=== PATIENT | female | born 2000 | race Caucasian/White ===

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

== ENCOUNTER 2022-06-11 16:03 | Emergency (ER) | payer OTHER ==
[~2022-06-11] VITALS: Ht 165.1 cm; Wt 143.0 kg
[2022-06-11] MEDS ORDERED: ACETAMINOPHEN 325MG TABLET PO ONE (18:15)
[2022-06-11 20:45] VITALS: BP 123/70
== END 2022-06-11 20:45 | disposition home or self-care (01) ==
LOC: ER 16:03
DX: H66.92 Otitis media, unspecified, left ear (principal); R00.0 Tachycardia, unspecified; Z20.822 Contact with and (suspected) exposure to COVID-19
CPT/HCPCS: 71046; 81025; 87426; 87804; 93005; 99285; C9803

== ENCOUNTER 2022-11-13 18:26 | Emergency (ER) | payer OTHER ==
[~2022-11-13] VITALS: Ht 170.2 cm; Wt 152.5 kg
[2022-11-13 20:24] LABS: CLARITY URINE CLEAR (CLEAR); COLOR URINE YELLOW (YELLOW); KETONES URINE NEGATIVE (NEGATIVE); LEUKOCYTE ESTERASE URINE NEGATIVE (NEGATIVE); NITRITE URINE NEGATIVE (NEGATIVE); OCCULT BLOOD URINE 3+ (NEGATIVE); PH URINE 5.5 (4.5-8.0); PROTEIN URINE TRACE (NEGATIVE); SPECIFIC GRAVITY URINE 1.029 (1.005-1.030); UROBILINOGEN URINE 0.2 E.U./dL (0.2-1.0)
[2022-11-13] MEDS ORDERED: ACETAMINOPHEN 325MG TABLET PO ONE (21:15)
[2022-11-13] MEDS ORDERED: GUAIFENESIN 600MG ER TABLET PO ONE (21:15)
[2022-11-13 23:00] VITALS: BP 139/86
[2022-11-13] MEDS ORDERED: ACET-2708 MT (23:03)
[2022-11-13] MEDS ORDERED: GUAI600T26 MT (23:03)
== END 2022-11-13 23:22 | disposition home or self-care (01) ==
LOC: ER 18:26
DX: B34.9 Viral infection, unspecified (principal); R07.89 Other chest pain; R05.9 Cough, unspecified; J45.909 Unspecified asthma, uncomplicated
CPT/HCPCS: 36415; 71045; 81003; 81025; 85379; 87426; 99284

== ENCOUNTER 2024-06-17 22:14 | Emergency (ER) | payer MEDICAID, OTHER ==
[~2024-06-17] VITALS: Ht 167.6 cm; Wt 154.5 kg
[~2024-06-17 22:14] MED LIST changes: +ACET-2708 MT; +GUAI600T26 MT
[2024-06-17 22:30] VITALS: O2SAT 98
[2024-06-17 23:57] VITALS: BP 148/76; PULSE 96; RESP 18; TEMP 36.78072; O2SAT 99
== END 2024-06-18 00:05 | disposition home or self-care (01) ==
LOC: ER 22:14
DX: S61.212A Laceration without foreign body of right middle finger without damage to nail, initial encounter (principal); J45.909 Unspecified asthma, uncomplicated; W45.8XXA Other foreign body or object entering through skin, initial encounter; Y93.89 Activity, other specified; Y92.89 Other specified places as the place of occurrence of the external cause; Y99.8 Other external cause status
CPT/HCPCS: 99281